=== PATIENT | female | born 1950 | race Caucasian/White ===

== ENCOUNTER → 2016-11-08 | Outpatient (CLI) | payer OTHER ==
--- NOTE | 2016-11-08 16:18 | MAMMOGRAPHY REPORT ---
BILATERAL DIGITAL SCREENING MAMMOGRAM WITH CAD: 11/08/2016 CLINICAL HISTORY: Routine screening. Patient has no complaints. TECHNIQUE: Bilateral CC and MLO views were obtained. Current study was also evaluated with a Comput er Aided Detection (CAD) system. COMPARISON: Comparison is made to exams dated: 11/04/2015 mammogram, 11/03/2014 mammogram, 10/31/2013 mammogram, 02/02/2010 mammogram - [facility], 01/28/2009, and 01/28/2008. BREAST COMPOSITION: There are scattered areas of fibroglandular density in both breasts. FINDINGS: There is a possible faint clustered microcalcifications in the lateral left breast, best seen on the CC view, for which additional spot magnification views are recommended. There are benign coarse calcifications scattered elsewhere in the breasts. Stable focal asymmetry i n the upper outer left breast is unchanged in size dating back to at least 02/02/2010, therefore lik shay benign. No other suspicious mass, architectural distortion or cluster of microcalcifications is seen. IMPRESSION: ACR BI-RADS CATEGORY 0: INCOMPLETE EVALUATION: NEED ADDITIONAL IMAGING EVALUATION The possible faint clustered microcalcifications in the lateral left breast need additional evaluati on. The patient will be called to schedule an appointment. Approximately 10% of breast cancers are not detected with mammography. A negative mammographic repor t should not delay biopsy if a clinically suggestive mass is present. Guillermina Boyd M.D. ay/:11/08/2016 14:50:12 Credit Control Assistant: Katy WEBSTER)(Liu), [facility] letter sent: Addl Imaging 0 BI-RADS Code: ACR BI-RADS Category 0: Incomplete Evaluation: Need Additional Imaging Evaluation
== END | disposition home or self-care (01) ==
LOC: C.MAMM 09:43
PROVIDERS: ATTEND Family Medicine
DX: Z12.31 Encounter for screening mammogram for malignant neoplasm of breast (principal); R92.8 Other abnormal and inconclusive findings on diagnostic imaging of breast

== ENCOUNTER → 2016-11-16 | Outpatient (CLI) | payer OTHER ==
--- NOTE | 2016-11-16 12:45 | MAMMOGRAPHY REPORT ---
UNILATERAL LEFT DIGITAL DIAGNOSTIC MAMMOGRAM: 11/16/2016 CLINICAL HISTORY: 66-year-old woman with no family history of breast cancer called back from screeni ng mammography for a possible cluster of microcalcifications in the left upper outer quadrant. TECHNIQUE: Spot magnification left CC and ML views were obtained. COMPARISON: Comparison is made to exams dated: 11/08/2016 mammogram, 11/03/2014 mammogram, 11/04/2015 mammogram, 10/31/2013 mammogram, 02/02/2010 mammogram - [facility], and 01/28/2009. BREAST COMPOSITION: There are scattered areas of fibroglandular density in the left breast. FINDINGS: There are a few benign coarse calcifications in the left upper outer quadrant. There are also approximately 2 faint groupings of 4-5 punctate microcalcifications in the upper outer middle one third of the left breast. When comparing to prior available mammograms, these have likely been present dating back to at least 02/02/2010, but are slightly increased in conspicuity. Given that l ength the stability they are most likely benign, however, a short interval follow-up exam including repeat spot magnification views is recommended to ensure stability given the increased conspicuity a nd very faint nature of the calcifications. No obvious associated mass or architectural distortion. IMPRESSION: ACR-BI-RADS CATEGORY 3: PROBABLY BENIGN 2 small faint groupings of punctate microcalcifications in the left upper outer middle one third of the breast may have been present dating back to 2009, but are slightly increased in conspicuity. A short interval follow-up diagnostic mammogram including repeat spot magnification views is recommend ed to ensure stability in 6 months. These results and recommendations were discussed with the patient at the time of the exam. She is t entatively scheduled a follow-up appointment prior to leaving our department. Approximately 10% of breast cancers are not detected with mammography. A negative mammographic repor t should not delay biopsy if a clinically suggestive mass is present. Guillermina Boyd M.D. ay/:11/16/2016 09:31:19 Dealer Compliance Representative: Alia LEDESMA(R)(M), [facility] letter sent: Follow Up Recommended 3 BI-RADS Code: ACR-BI-RADS Category 3: Probably Benign
== END | disposition home or self-care (01) ==
LOC: C.MAMM 08:53
PROVIDERS: ATTEND Family Medicine
DX: R92.0 Mammographic microcalcification found on diagnostic imaging of breast (principal)

== ENCOUNTER → 2017-05-17 | Outpatient (CLI) | payer OTHER ==
--- NOTE | 2017-05-17 13:43 | MAMMOGRAPHY REPORT ---
UNILATERAL LEFT DIGITAL DIAGNOSTIC MAMMOGRAM TOMOSYNTHESIS WITH CAD: 05/17/2017 CLINICAL HISTORY: Patient presents for close follow-up of 2 small faint groupings of punctate microca lcifications in the upper outer middle one third of the left breast. No family history of breast can cer. TECHNIQUE: Left CC and MLO 2-D and tomosynthesis images, spot magnification left CC and ML views were obtained. Current study was also evaluated with a Computer Aided Detection (CAD) system. COMPARISON: Comparison is made to exams dated: 11/16/2016 mammogram, 11/08/2016 mammogram, 11/04/2015 ma mmogram, 11/03/2014 mammogram, 10/31/2013 mammogram, and 02/02/2010 mammogram - [facility] nt. BREAST COMPOSITION: There are scattered areas of fibroglandular density in the left breast. FINDINGS: The parenchymal pattern of the left breast is similar to prior mammograms, with stable asym metry in the upper outer posterior breast. A stable 10 mm mass with associated coarse calcification is again seen in the lateral left breast. No new suspicious mass, architectural distortion or new barrios spicious microcalcifications are identified. The 2 small 2 mm groupings of faint punctate microcalci fications in the upper outer middle one third of the left breast are stable based on spot magnificati on views comparing to the views obtained on 11/16/2016. When comparing to prior full-field mammogram s, the microcalcifications were likely present dating back to at least 02/02/2010, suggesting benigni ty. Given the faint amorphous morphology and focal nature of microcalcifications, options of tissue sampling with stereotactic biopsy versus continued close follow-up imaging were discussed with the trish jacobs. She prefers to continue following the microcalcifications at this time. IMPRESSION: ACR-BI-RADS CATEGORY 3: PROBABLY BENIGN Repeat spot magnification views demonstrate two stable 2 mm clusters of faint punctate microcalcifica tions in the left upper outer quadrant, and these microcalcifications have likely been stable dating back to full-field mammograms performed in 2009, suggesting benignity. However, another short interv al follow-up diagnostic left mammogram including spot magnification views is recommended to ensure lo nger stability. Annual right mammography will be due at that time. These results and recommendations were discussed with the patient at the time of the exam. Approximately 10% of breast cancers are not detected with mammography. A negative mammographic report should not delay biopsy if a clinically suggestive mass is present. Guillermina Boyd M.D. ay/:05/17/2017 09:08:43 Fall Intern: Nataliia LEDESMA(Pedro Pablo)(Liu), [facility] letter sent: Follow Up Recommended 3 BI-RADS Code: ACR-BI-RADS Category 3: Probably Benign
== END | disposition home or self-care (01) ==
LOC: C.MAMM 08:35
PROVIDERS: ATTEND Physician Assistant
DX: R92.2 Inconclusive mammogram (principal); R92.0 Mammographic microcalcification found on diagnostic imaging of breast

== ENCOUNTER → 2017-11-09 | Outpatient (CLI) | payer OTHER ==
--- NOTE | 2017-11-09 13:45 | MAMMOGRAPHY REPORT ---
BILATERAL DIGITAL DIAGNOSTIC MAMMOGRAM TOMOSYNTHESIS WITH CAD AND TARGETED RIGHT ULTRASOUND: 8 CLINICAL HISTORY: Short interval follow-up of left breast calcifications. Due for routine annual [facility] mography. The patient reports no current complaints. TECHNIQUE: Breast tomosynthesis in addition to standard 2D mammography was performed. Current study was also evaluated with a Computer Aided Detection (CAD) system. Bilateral CC and MLO 2-D and tomosy nthesis images and spot magnification left CC and ML views were obtained. COMPARISON: Comparison is made to exams dated: 05/17/2017 mammogram, 11/16/2016 mammogram, 11/08/2016 roxanne mogram, 11/04/2015 mammogram, 11/03/2014 mammogram, and 10/31/2013 mammogram - [facility]. BREAST COMPOSITION: There are scattered areas of fibroglandular density in both breasts. FINDINGS: Spot magnification views of the left breast again demonstrate loosely grouped punctate ty ign appearing calcifications in the left upper outer quadrant. The calcifications are stable on spot magnification views dating back to 11/16/2016, and in retrospect are also present dating back to at le ast the 2009 exam. Given the long-term stability and benign morphology, the calcifications are consi dered benign. There is a subtle area of architectural distortion within the right medial breast at a pproximately 2 to 3:00, only well-seen on the tomosynthesis images. The remainder of both breasts de monstrate no suspicious masses, calcifications, or areas of architectural distortion. Bilateral yon gn-appearing masses and calcifications are stable. When asked if the patient had any prior right breast surgery, the patient reports she did have a righ t breast surgical excision for a benign finding approximately 40 years ago. She does not remember wh ere in the breast the surgery was and does not clearly have a residual scar on the skin. Ultrasound was performed of the region of the architectural distortion in the right 2 to 3:00 breast, which show s no suspicious masses or other suspicious sonographic findings. Given that the patient did have barbi or surgery and given the lack of a corresponding sonographic abnormality, the architecture distortion is felt to represent postsurgical changes. Additionally, the distortion appears stable on 2-D views to prior exams including the 2014 exam. IMPRESSION: ACR BI-RADS CATEGORY 2: BENIGN, TARGETED ULTRASOUND ACR BI-RADS CATEGORY 2: BENIGN 1. Punctate benign-appearing calcifications in the left upper outer quadrant are stable dating back to the 2009 exam, and are considered benign given the long-term stability and morphology. 2. Architectural distortion noted within the right medial breast on the tomosynthesis images, withou t corresponding sonographic abnormality evident. Given the history of prior right breast surgery, th e architectural distortion is benign and felt to represent postsurgical changes. There is no mammographic or targeted sonographic evidence of malignancy. A 1 year screening mammogram is recommended. The patient has been verbally notified of the results. Approximately 10% of breast cancers are not detected with mammography. A negative mammographic report should not delay biopsy if a clinically suggestive mass is present. Aisha Joe M.D. ah/:11/09/2017 12:08:29 Pipe Fitter Supervisor Maintenance: Em LEDESMA(Pedro Pablo)(Liu), [facility] letter sent: Normal 1/2 BI-RADS Code: ACR BI-RADS Category 2: Benign Ultrasound BI-RADS: ACR BI-RADS Category 2: Benign
== END | disposition home or self-care (01) ==
LOC: C.MAMM 09:54
PROVIDERS: ATTEND Physician Assistant
DX: R92.1 Mammographic calcification found on diagnostic imaging of breast (principal); N64.89 Other specified disorders of breast